=== PATIENT | female | born 1995 | race Caucasian/White ===

== ENCOUNTER 2016-11-06 22:54 | Emergency (ER) | payer OTHER ==
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
[2016-11-07 01:18] VITALS: BP 114/74
== END 2016-11-07 01:18 | disposition home or self-care (01) ==
LOC: ED 22:54
DX: J70.5 Respiratory conditions due to smoke inhalation (principal); R42 Dizziness and giddiness; R05 Cough; J02.9 Acute pharyngitis, unspecified
CPT/HCPCS: 36415; 82375; 99282